=== PATIENT | female | born 1995 | race Hispanic/Latino ===

== ENCOUNTER 2020-03-30 20:11 | Emergency (ER) | payer OTHER, SELFPAY ==
[~2020-03-30 20:11] MED LIST: Iopamidol 370 76% 100 ML VIAL ONE
[2020-03-30 20:57] LABS: #Basophils 0.1 thou/uL (0.0-0.2); #Eosinphils 0.2 thou/uL (0.0-0.7); #Lymphocytes 3.7 thou/uL (1.20-3.40); #Monocytes 0.7 thou/uL (0.11-0.59); #Neutrophils 6.9 thou/uL (1.40-6.50); %Basophils 0.7 % (0.0-1.0); %Lymphocytes 32.1 % (21.0-51.0); %Monocytes 5.8 % (0.0-10.0); %Neutrophils 59.4 % (42.0-75.0); Hemoglobin 13.5 g/dL (12.0-16.0); Mean Corpuscular HGB CONC 34.6 g/dL (32.0-36.0); Mean Corpuscular Hemoglobin 32.3 pg (27.0-31.0); Mean Corpuscular Volume 93.3 fL (78.0-98.0); Platelet Count 279 thou/uL (130-400); RBC Distribution Width 11.5 % (11.5-14.5); Red Blood Cell (RBC) Count 4.17 mill/uL (4.20-5.40); White Blood Cell (WBC) Count 11.6 thou/uL (4.8-10.8)
[2020-03-30 21:20] LABS: ALT (SGPT) 26 U/L (8-55); AST (SGOT) 16 U/L (5-34); Albumin 4.2 g/dL (3.5-5.0); Alkaline Phosphatase 87 U/L (40-110); Anion Gap 12 mmol/L (10-20); BUN (Urea Nitrogen) 8 mg/dL (7.0-18.7); Bilirubin, Total 0.6 mg/dL (0.2-1.2); Calc. Creatinine Clearance 0 mL/min (70-130); Calcium 8.8 mg/dL (7.8-10.44); Carbon Dioxide 27 mmol/L (22-29); Chloride 103 mmol/L (98-107); Globulin 3.5 g/dL (2.4-3.5); Glucose 93 mg/dL (70-105); Potassium 3.6 mmol/L (3.5-5.1); Protein, Total 7.7 g/dL (6.0-8.3); Sodium 138 mmol/L (136-145)
[2020-03-30 21:49] LABS: Bacteria/HPF 4+ HPF (None Seen); Bilirubin Negative (Negative); Blood, Urine 1+ (Negative); Clarity Clear (Clear); Glucose, Urine (Dipstick) Normal (Negative); Ketone, Urine 60 mg/dL (Negative); Leukocyte 250 Leu/uL (Negative); Nitrite Negative (Negative); Pregnancy Test - Urine (BHCG) Negative (Negative); Pregu Control Background? CLEAR/WHITE (CLR/WHITE); Pregu Control Bar Appear? YES (CONTROL BAR); Protein, Urine (Dipstick) Negative (Neg-Trace); Renal Epithelial 0-3 HPF (None Seen); Specific Gravity 1.015 (1.002-1.036); Specific Gravity, Urine 1.015 (1.002-1.036); Urobilinogen Normal mg/dL (Less than 2); pH, Urine 5.5 (5.0-9.0)
[2020-03-30] MEDS ORDERED: Ondansetron PF 4 MG/2 ML Vial ONE (22:09)
[2020-03-30] MEDS ORDERED: Morphine 4 MG/ML VIAL ONE (22:09)
[2020-03-30] MEDS ORDERED: cefTRIAXone\\ROCEPHIN 1 GM VIAL ONE (22:20)
[2020-03-30] MEDS ORDERED: Sodium Chloride 0.9% 100 ML ONE (22:20)
--- NOTE | 2020-03-30 22:43 | CT ---
CT abdomen and pelvis: 03/30/2020 COMPARISON: 02/27/2015 HISTORY: Left-sided pain, evaluate for appendicitis TECHNIQUE: Axial CT imaging at 5 mm intervals from lung bases through pubic symphysis with IV contras t. Coronal and sagittal reformatted imaging obtained. FINDINGS: The imaged lung bases are unremarkable. Cholecystectomy clips are present. The hepatic parenchyma is mildly hypodense, suggesting steatosis. The spleen, pancreas, adrenal gland s, and kidneys appear unremarkable. Limited assessment of the bowel without oral contrast media demonstrates no evidence for obstruction. The appendix is unremarkable. There is a focal area of mild pericolonic inflammatory change/fat stranding involving the anterior as pect of the midportion of the descending colon. No significant diverticular disease is noted. Epiploic appendagitis favored over a focal area of eccentric colitis The vascular structures of the a bdomen/pelvis appear patent. No abdominal or pelvic lymphadenopathy. No acute osseous abnormality. IMPRESSION: Pericolonic inflammatory change as detailed above.
== END 2020-03-30 23:33 | disposition home or self-care (01) ==
LOC: ERS 20:11
DX: K63.89 Other specified diseases of intestine (principal); N12 Tubulo-interstitial nephritis, not specified as acute or chronic
CPT/HCPCS: 36415; 74177; 80053; 81003; 81015; 81025; 83690; 85025; 96365; 96375; J0696; J2270; J2405; J3490; Q9967